=== PATIENT | female | born 1970 | race Caucasian/White ===

== ENCOUNTER 2019-01-05 17:18 | Emergency (ER) | payer BC, MEDICAID ==
--- NOTE | 2019-01-05 17:52 | ED Physician Chart ---
ED Chief Complaint/HPI - Patient Information Date Seen:: 01/05/19 Time Seen:: 17:45 Chief Complaint:: trauma r 5th toe Allergies:: Allergies Allergy/AdvReac Type Severity Reaction Status Date / Time No Known Allergies Allergy Verified 01/05/19 17:33 Vitals:: Vital Signs - 8 hr 01/05/19 17:34 Temp 98.1 F HR 62 RR 18 BP 136/72 O2 Sat % 99 Historian:: Patient, Family Member Review:: Nurse's Note Reviewed ED Review of Systems - Review of Systems General/Constitutional: No fever (bruising partial range motion ) ED Past Medical History - Past Medical History Past Medical History: No significant medical hx Family Medical History - Family Member Mother History Unknown: Yes ED Physical Exam - Physical Examination General/Constitutional: Well-developed, well-nourished, Alert, No distress, GCS 15, Non-toxic appearing, Ambulatory Head: Atraumatic Eyes: Lids, conjuctiva normal Skin: Nl inspection ENMT: External ears, nose nl Neck: Nontender Respiratory: Nl effort/Exclusion Cardio Vascular: RRR GI: No tenderness/rebounding/guarding Extremities: Full ROM (bruise dorsum no sig deviation) ED Assessment - Assessment General Assessment: contussion ro fracture ED Septic Shock - . 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
== END 2019-01-05 17:55 | disposition home or self-care (01) ==
LOC: ER 17:18
DX: S90.121A Contusion of right lesser toe(s) without damage to nail, initial encounter (principal); X58.XXXA Exposure to other specified factors, initial encounter; Y93.89 Activity, other specified; Y92.89 Other specified places as the place of occurrence of the external cause; Y99.8 Other external cause status